=== PATIENT | male | born 1985 | race Caucasian/White ===

== ENCOUNTER 2020-08-19 09:13 | Emergency (ER) | payer MEDICAID ==
[~2020-08-19] VITALS: Ht 180.3 cm; Wt 81.6 kg
[2020-08-19 09:13] VITALS: BP_SYST 150
--- NOTE | 2020-08-19 09:13 | NUR ---
Patient to ER bed 6 to gown for evaluation. Side rails up. Report given to NAGA De Jesus.
--- NOTE | 2020-08-19 09:15 | NUR ---
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
--- NOTE | 2020-08-19 09:20 | NUR ---
ER at bedside examining patient.
--- NOTE | 2020-08-19 09:25 | NUR ---
ativan ordered pt refusing, cont to behave inappropriately
[2020-08-19] MEDS ORDERED: LORazepam 2 MG/ML VIAL IM ONE (09:30)
--- NOTE | 2020-08-19 10:02 | NUR ---
Patient given written and verbal discharge instructions. Dr. Tejeda discussed with patient the results and treatment provided. Patient in stable condition. Pain Scale 0. Opportunity for questions provided, pt. anxious to leave, doesn't listen.
[2020-08-19 10:06] VITALS: BP_SYST 150
== END 2020-08-19 10:02 | disposition home or self-care (01) ==
LOC: SED 09:13
DX: F15.10 Other stimulant abuse, uncomplicated (principal); N48.89 Other specified disorders of penis
CPT/HCPCS: 96372; 99283; J2060